=== PATIENT | male | born 1975 | race African-American/Black ===

== ENCOUNTER 2018-04-30 18:23 | Emergency (ER) | payer OTHER ==
[~2018-04-30] VITALS: Ht 165.1 cm; Wt 77.1 kg
[2018-04-30 18:39] LABS: PLATELET COUNT 215 K/uL (142-355)
[2018-04-30 18:47] LABS: POTASSIUM 3.3 mmol/L (3.6-5.2)
[2018-04-30 23:05] VITALS: BP 120/76; TEMP 98
== END 2018-04-30 23:10 | disposition home or self-care (01) ==
LOC: ED 18:23
PROVIDERS: Emergency Medicine
DX: K57.92 Diverticulitis of intestine, part unspecified, without perforation or abscess without bleeding (principal)
CPT/HCPCS: 36415; 80053; 81000; 82150; 83690; 85027; 96361; 96365; 96375; 99284; J0744; J1885; J2175; Q9963

== ENCOUNTER 2021-06-30 11:02 | Outpatient (CLI) | payer OTHER | END 2021-06-30 19:36 | disposition home or self-care (01) | LOC: RAD 11:02 | PROVIDERS: ATTEND Family Medicine | DX: M54.50 Low back pain, unspecified (principal); M62.830 Muscle spasm of back ==

== ENCOUNTER 2022-10-04 00:06 | Emergency (ER) | payer OTHER ==
[~2022-10-04] VITALS: Ht 165.1 cm; Wt 80.7 kg
[2022-10-04 00:13] VITALS: TEMP 97.5
[2022-10-04 02:05] VITALS: BP 127/78
== END 2022-10-04 02:05 | disposition home or self-care (01) ==
LOC: ED 00:06
DX: S39.012A Strain of muscle, fascia and tendon of lower back, initial encounter (principal); M62.830 Muscle spasm of back
CPT/HCPCS: 96372; 99283; J1885; J2930